=== PATIENT | male | born 1960 | race Caucasian/White ===

== ENCOUNTER → 2019-08-07 07:14 | Outpatient (CLI) | payer BC, OTHER, SELFPAY ==
[2019-08-07 08:12] LABS: Add Manual Diff / Slide Review NO; Basophils Absolute Auto 0 /uL (0-100); Basophils Percent Auto 0.6 % (0-2); Eosinophils Absolute Auto 300 /uL (0-450); Eosinophils Percent Auto 4.9 % (2-4); Hematocrit 46.6 % (41-53); Lymphocytes Absolute Auto 2000 /uL (1100-4500); Mean Corpuscular HGB Conc 34.4 % (30-36); Mean Corpuscular Hemoglobin 31.5 PG (26-34); Mean Corpuscular Volume 91.7 fL (80-100); Monocytes Absolute Auto 600 /uL (0-900); Monocytes Percent Auto 9.6 % (3-14); Neutrophils Absolute Auto 3600 /uL (1500-7000); Neutrophils Percent Auto 54.9 % (50-75); Platelet Count 212 X10^3/uL (150-400); Red Blood Cell Count 5.08 X10^6/uL (4.5-5.9); Red Cell Distribution Width 12.8 % (11.6-14.8); White Blood Cell Count 6.5 X10^3/uL (4.5-11.0)
[2019-08-07 08:48] LABS: Alanine Aminotransferase 32 IU/L (<50); Albumin 4.5 g/dL (3.5-5.0); Albumin Globulin Ratio 1.6 (1.0-2.8); Alkaline Phosphatase 55 U/L (38-126); Aspartate Aminotransferase 39 IU/L (17-59); BUN Creatinine Ratio 12.7 (6-22); Bilirubin Total 1.1 mg/dL (0.2-1.3); Blood Urea Nitrogen 14 mg/dL (9-20); Calcium 9.5 mg/dL (8.4-10.2); Carbon Dioxide 28 mmol/L (22-32); Chloride 103 mmol/L (98-107); Cholesterol 238 mg/dL (140-199); Estimated Glomerular Filt Rate > 60.0 mL/min (>60); Globulin 2.8 g/dL (1.7-4.1); Glucose 97 mg/dL (70-100); HDL Cholesterol 99 mg/dL (40-60); HEMOLYSIS < 15 (0-50); LDL Cholesterol Calculated 121 mg/dL (<100); Sodium 138 mmol/L (137-145); Total Protein 7.3 g/dL (6.3-8.2); Triglycerides 90 mg/dL (35-150)
[2019-08-07 09:14] LABS: TSH w/ Reflex to FT4 1.57 uIU/mL (0.47-4.68)
[2019-08-07 09:15] LABS: Testosterone 450 ng/dL (71.8-623)
[2019-08-07 13:28] LABS: Prostate Specific Antigen Scrn 2.37 ng/mL (0.1-4.0)
== END ==
PROVIDERS: PCP Internal Medicine; Visit Provider Internal Medicine
DX: Z00.01 Encounter for general adult medical examination with abnormal findings (principal); I10 Essential (primary) hypertension; N52.9 Male erectile dysfunction, unspecified
CPT/HCPCS: 36415; 80053; 80061; 84403; 84443; 85025; G0103

== ENCOUNTER → 2020-08-12 13:26 | Outpatient (CLI) | payer BC, OTHER, SELFPAY ==
--- NOTE | 2020-08-12 | DI.MRI.S_ITS ---
PROCEDURE: MR HAND LT WO CON INDICATIONS: Pain in left hand TECHNIQUE: Noncontrast coronal T1 spin echo and T2 fast spin echo with fat saturation, axial proton density fast spin echo and T2 fast spin echo with fat saturation, sagittal T1 spin echo and STIR through the hand and fingers. COMPARISON: None. FINDINGS: Image quality: Excellent. No discrete fracture seen. There is focal sub 5 mm marrow signal change at the radial aspect of the 4th metacarpal head raising the possibility of erosion although technically nonspecific. No marrow contusion is identified. Scattered degenerative subchondral sclerosis and spurring. Mild ring finger flexor tenosynovitis and tendinopathy is seen primarily at the level of the MCP joint. The ring finger flexor tendons appear grossly intact. No evidence of bowstringing. There is mild intrasubstance signal change involving the radial collateral ligament at the 4th MCP joint although some intact fibers appear to be present. This suggests partial rupture/sprain Extensor tendons appear grossly intact without edema or abnormal T2 hyperintensity. No joint effusion identified. The muscles and vessels demonstrate normal signal intensity. No discrete fluid collection. IMPRESSION: Sprain of the radial collateral ligament of the 4th MCP joint. Marrow signal changes involving the 4th metacarpal head raising the possibility of erosion although this could be better assessed with contrast-enhanced examination. Mild ring finger flexor tenosynovitis Grossly intact appearance of the ring finger flexor and extensor tendon slips. Dictated by: Ronny Munoz M.D. on 08/12/2020 at 14:31 Approved by: Ronny Munoz M.D. on 08/12/2020 at 15:18
== END ==
PROVIDERS: PCP Internal Medicine; Referring Provider Internal Medicine; Visit Provider Orthopaedic Surgery
DX: M79.642 Pain in left hand (principal); S53.22XA Traumatic rupture of left radial collateral ligament, initial encounter; M65.842 Other synovitis and tenosynovitis, left hand
CPT/HCPCS: 73218